=== PATIENT | female | born 1980 | race Caucasian/White ===

== ENCOUNTER 2022-10-20 22:16 | Emergency (ER) | payer OTHER ==
[~2022-10-20] VITALS: Ht 170.2 cm; Wt 122.5 kg
--- NOTE | 2022-10-20 22:22 | NUR ---
Patient to ER bed 06 to gown for evaluation. Side rails up.
[2022-10-20 22:23] VITALS: BP_SYST 163
--- NOTE | 2022-10-20 22:36 | NUR ---
Dr Garcia evaluating patient at bedside
--- NOTE | 2022-10-20 22:40 | NUR ---
Pt with c/o of right leg pain radiating to the posterior leg. Pt has ran out of her perscription for pain management. Pt ambulatory, following commands and A&O X4.
--- NOTE | 2022-10-20 22:43 | NUR ---
Dr. Garcia with patient at bedside for MSE.
[2022-10-20] MEDS ORDERED: LIDOCAINE PATCH 5% 1 EA TP ONE (22:45)
[2022-10-20] MEDS ORDERED: KETOROLAC TROMETHAMINE 30 MG VIAL IM ONE (22:45)
[2022-10-20] MEDS ORDERED: IBUP-1970 PO (22:49)
[2022-10-20] MEDS ORDERED: CYCL10TA24 PO (22:49)
[2022-10-20] MEDS ORDERED: LIDOINT TP (22:49)
[2022-10-20] MEDS ORDERED: MED4 PO (22:49)
[2022-10-21] MEDS ORDERED: HYDROcodone/ACETAMIN 5-325 MG TAB (NORCO/ VICODIN) PO ONE
[2022-10-21 00:20] VITALS: BP_SYST 163
--- NOTE | 2022-10-21 00:20 | NUR ---
Patient given written and verbal discharge instructions and verbalizes understanding. ER DR. NASH discussed with patient the results and treatment provided. Patient in stable condition. ID arm band removed. Rx of flexeril, ibuprofen, medrol and lidocaine given. Patient educated on pain management and to follow up with PMD. Pain Scale 0. Opportunity for questions provided and answered. Medication side effect fact sheet provided.
== END 2022-10-21 00:20 | disposition home or self-care (01) ==
LOC: SED 22:16
DX: M54.41 Lumbago with sciatica, right side (principal); Z79.899 Other long term (current) drug therapy; M79.661 Pain in right lower leg
CPT/HCPCS: 99283; 96372; J1885